=== PATIENT | female | born 1955 | race Caucasian/White ===

== ENCOUNTER → 2023-06-07 13:38 | Outpatient (CLI) | payer MEDICARE, SELFPAY ==
--- NOTE | 2023-06-07 | DI.MG.S_ITS ---
BILATERAL DIGITAL DIAGNOSTIC MAMMOGRAM 3D/2D SHORT-TERM FOLLOW-UP: 06/07/2023 CLINICAL: Short term follow up of the right breast, due for bilateral imaging. Comparison is made to exams dated: 02/18/2021 mammogram, 01/26/2021 mammogram, 01/03/2021 mammogram, and 02/18/2021 stereotactic biopsy - outside location. Both breasts are heterogeneously dense, which may obscure small masses (category c / 51-75% glandular tissue). There is a stable fine calcification in the right breast at 10 o'clock posterior depth. This correlates with the biopsy. There also is a stable fine calcification in the right breast at 12 o'clock posterior depth. This correlates with the biopsy. No other significant masses, calcifications, or other findings are seen in either breast. IMPRESSION: BENIGN There is no mammographic evidence of malignancy. Stable fine calcifications in the right breast breast. Prior benign biopsies. A 1 year screening mammogram is recommended. Exam findings were conveyed to the patient. Based on the Tyrer Cuzick model (a risk assessment model) the patient's lifetime risk is 8.7% and her 10 year risk is 4.6%. According to the ACR, ACS, and NCCN guidelines, an annual breast MRI exam along with mammogram is recommended if the patient's lifetime risk is 20% or greater. This exam was interpreted at Station ID: [id number]. NOTE: For mammograms, a report in lay terms will be sent to the patient. Approximately 15% of breast malignancies will not be visualized mammographically. In the management of a palpable breast mass, a negative mammogram must not discourage biopsy of a clinically suspicious lesion. Electronically Signed By: Junior Nixon M.D. [facility] [place]/:06/07/2023 14:21:40 copy to: KATIA MCCLURE letter sent: Normal Exam ACR BI-RADS Category 2: Benign Finding(s) 3342F
== END ==
PROVIDERS: PCP Internal Medicine; Referring Provider Internal Medicine; Visit Provider Internal Medicine
DX: R92.8 Other abnormal and inconclusive findings on diagnostic imaging of breast (principal); R92.1 Mammographic calcification found on diagnostic imaging of breast
CPT/HCPCS: 77066; G0279

== ENCOUNTER → 2023-07-07 09:52 | Outpatient (CLI) | payer MEDICARE, SELFPAY ==
--- NOTE | 2023-07-07 | DI.RAD.S_ITS ---
Bone Density Report Name: RANDY CHAHAL Age: 67 Sex: Female Ethnicity: White Date of : 1955 Indication: postmenopausal; screening for osteoporosis; Referring Provider: AV GARCIA Study: Bone densitometry was performed. Exam Date: July 07, 2023 Accession number: [id number] Bone Density: Region BMD T-score Z-score Classification AP Spine(L1-L4) 0.671 -3.4 -1.5 Osteoporosis Femoral Neck (Left) 0.524 -2.9 -1.3 Osteoporosis Total Hip (Left) 0.673 -2.2 -0.8 Osteopenia Femoral Neck (Right) 0.526 -2.9 -1.3 Osteoporosis Total Hip (Right) 0.673 -2.2 -0.8 Osteopenia Total Hip Mean 0.673 -2.2 -0.8 Osteopenia World Health Organization criteria for BMD impression classify patients as: Normal (T-score at or above -1.0), Osteopenia (T-score between -1.0 and -2.5), or Osteoporosis (T-score at or below -2.5). 10-year Fracture Risk: FRAX not reported because: Some T-score for Spine Total or Hip Total or Femoral Neck at or below -2.5 Treated for osteoporosis Impression: The patient has osteoporosis, based on the Total Spine T-score. Discussion: It is important to ask patients whether they are taking their medications and to encourage continued and appropriate compliance with their osteoporosis therapies to reduce fracture risk. It is also important to review their risk factors and encourage appropriate calcium and vitamin D intakes, exercise, fall prevention and other lifestyle measures. Follow-Up: Consider a repeat BMD and Vertebral Fracture Assessment (VFA) exam in 2 years or sooner if medically necessary, to reassess this patient's status. Reported by: DWIGHT ZIMMER M.D. on 07/07/2023 10:13:00 AM.
== END ==
PROVIDERS: PCP Internal Medicine; Referring Provider Nurse Practitioner Family; Visit Provider Nurse Practitioner Family
DX: M81.0 Age-related osteoporosis without current pathological fracture (principal); Z78.0 Asymptomatic menopausal state; Z13.820 Encounter for screening for osteoporosis; Z79.83 Long term (current) use of bisphosphonates
CPT/HCPCS: 77080

== ENCOUNTER → 2024-06-19 | Outpatient (CLI) | payer MEDICARE, SELFPAY ==
--- NOTE | 2024-06-19 15:54 | DI.MG.S_ITS ---
BILATERAL DIGITAL SCREENING MAMMOGRAM 3D/2D WITH CAD: 06/19/2024 CLINICAL: Routine screening. Comparison is made to exams dated: 06/07/2023 mammogram - [facility], 02/18/2021 mammogram, and 01/03/2021 mammogram - outside location. Both breasts are heterogeneously dense, which may obscure small masses (category c / 51-75% glandular tissue). Current study was also evaluated with a Computer Aided Detection (CAD) system. There are benign post operative findings and biopsy clip in the right breast. There also are benign post operative findings in the left breast. No significant masses, calcifications, or other findings are seen in either breast. There has been no significant interval change. IMPRESSION: BENIGN There is no mammographic evidence of malignancy. A 1 year screening mammogram is recommended. Based on the Tyrer Cuzick model (a risk assessment model) the patient's lifetime risk is 8.2% and her 10 year risk is 4.6%. According to the ACR, ACS, and NCCN guidelines, an annual breast MRI exam along with mammogram is recommended if the patient's lifetime risk is 20% or greater. This exam was interpreted at Station ID: [id number]. NOTE: For mammograms, a report in lay terms will be sent to the patient. Approximately 15% of breast malignancies will not be visualized mammographically. In the management of a palpable breast mass, a negative mammogram must not discourage biopsy of a clinically suspicious lesion. Electronically Signed By: Caridad Martinez M.D., Ph.D. anne/chito:06/20/2024 14:48:27 copy to: KATIA MCCLURE letter sent: Normal Exam ACR BI-RADS Category 2: Benign Finding(s) 3342F
== END ==
LOC: MAMMO 15:53
PROVIDERS: PCP Internal Medicine; Referring Provider Internal Medicine; Visit Provider Internal Medicine
DX: Z12.31 Encounter for screening mammogram for malignant neoplasm of breast (principal); R92.333 Mammographic heterogeneous density, bilateral breasts
CPT/HCPCS: 77063; 77067

== ENCOUNTER → 2024-09-10 09:19 | Outpatient (CLI) | payer MEDICARE, SELFPAY ==
[2024-09-10 10:28] LABS: Hematocrit 39.4 % (36-46); Hemoglobin 13.6 g/dL (12.0-16.0); Mean Corpuscular HGB Conc 34.4 % (30-36); Mean Corpuscular Hemoglobin 32.2 PG (26-34); Mean Corpuscular Volume 93.4 fL (80-100); Platelet Count 258 X10^3/uL (150-400); Red Blood Cell Count 4.22 X10^6/uL (4.0-5.2); Red Cell Distribution Width 13.3 % (11.6-14.8); White Blood Cell Count 4.7 X10^3/uL (4.5-11.0)
[2024-09-10 10:52] LABS: Alanine Aminotransferase 14 IU/L (<35); Albumin 4.3 g/dL (3.5-5.0); Albumin Globulin Ratio 1.7 (1.0-2.8); Alkaline Phosphatase 87 U/L (38-126); Aspartate Aminotransferase 24 IU/L (14-36); BUN Creatinine Ratio 13.7 (6-22); Bilirubin Total 0.8 mg/dL (0.2-1.3); Blood Urea Nitrogen 10 mg/dL (7-17); Calcium 9.1 mg/dL (8.4-10.2); Carbon Dioxide 26 mmol/L (22-32); Chloride 105 mmol/L (98-107); Cholesterol 209 mg/dL (140-199); Estimated Glomerular Filt Rate > 60 mL/min (>60); Globulin 2.5 g/dL (1.7-4.1); Glucose 91 mg/dL (80-110); HDL Cholesterol 82 mg/dL (40-60); HEMOLYSIS < 15 (0-50); LDL Cholesterol Calculated 113 mg/dL (<100); Potassium 4.1 mmol/L (3.4-5.1); Sodium 138 mmol/L (137-145); Total Protein 6.8 g/dL (6.3-8.2); Triglycerides 68 mg/dL (35-150)
[2024-09-10 11:07] LABS: Vitamin D 25 Hydroxy (D3) 82.9 ng/mL (30.0-100.0)
[2024-09-10 11:21] LABS: TSH w/ Reflex to FT4 0.47 uIU/mL (0.47-4.68)
== END ==
PROVIDERS: PCP Registered Nurse Diabetes Educator; Referring Provider Registered Nurse Diabetes Educator; Visit Provider Registered Nurse Diabetes Educator
DX: Z00.00 Encounter for general adult medical examination without abnormal findings (principal); E78.5 Hyperlipidemia, unspecified; Z12.11 Encounter for screening for malignant neoplasm of colon
CPT/HCPCS: 36415; 80053; 80061; 82306; 84443; 85027

== ENCOUNTER → 2024-10-13 10:50 | Outpatient (CLI) | payer MEDICARE, SELFPAY ==
[2024-10-14 08:07] LABS: Apolipoprotein B 79 mg/dL (<90)
[2024-10-15 15:12] LABS: Lipoprotein (a) 27.4 nmol/L (<75.0)
== END ==
PROVIDERS: PCP Registered Nurse Diabetes Educator; Referring Provider Registered Nurse Diabetes Educator; Visit Provider Registered Nurse Diabetes Educator
DX: E78.5 Hyperlipidemia, unspecified (principal)
CPT/HCPCS: 36415; 82172; 83695

== ENCOUNTER → 2024-10-25 13:11 | Outpatient (CLI) | payer MEDICARE, SELFPAY ==
--- NOTE | 2024-10-25 13:14 | DI.US.S_ITS ---
PROCEDURE: US ABD AORTA ANEURYSM SCREEN INDICATIONS: eval, R/O AAA TECHNIQUE: Real time scanning was performed of the aorta and iliac arteries, with image documentation. COMPARISON: None. FINDINGS: Aorta: Proximal aortic diameter measures 2.3 x 2.0 cm. Mid-aorta measures 1.9 cm. Distal aortic diameter is 1.5 cm. Iliac arteries: Right common iliac artery measures 0.9 cm. Left common iliac artery measures 0.8 cm. IMPRESSION: No infrarenal aortic aneurysm. Dictated by: Rajat Christianson M.D. on 10/25/2024 at 17:59 Approved by: Rajat Christianson M.D. on 10/25/2024 at 18:00
== END ==
PROVIDERS: PCP Registered Nurse Diabetes Educator; Referring Provider Registered Nurse Diabetes Educator; Visit Provider Registered Nurse Diabetes Educator
DX: R09.89 Other specified symptoms and signs involving the circulatory and respiratory systems; Z13.6 Encounter for screening for cardiovascular disorders
CPT/HCPCS: 76706

== ENCOUNTER 2025-03-09 03:48 | Emergency (ER) | payer MEDICARE, SELFPAY ==
[2025-03-09] VITALS (7 sets, daily range): BP systolic 107–132; BP diastolic 53–64; PULSE 60–82; RESP 16–18; TEMP 36.4; O2SAT 94–99; BMI 21.6
--- NOTE | 2025-03-09 05:02 | DI.CT.S_ITS ---
PROCEDURE: CT LUMBAR SPINE WO CON INDICATIONS: LBP, osteoporosis TECHNIQUE: Noncontrast 3 mm thick sections acquired from the T12 level to the sacrum. Sagittal and coronal reformats were constructed. For radiation dose reduction, the following was used: automated exposure control. COMPARISON: None. FINDINGS: Image quality: Excellent. Bones: There is normal bony alignment. No acute vertebral body compression fractures. At the superior endplate of T12, there is a remote appearing compression deformity, with an associated Schmorl's node, with 30% loss of height centrally No suspicious lytic or blastic bony lesions. No pars defects. Age-appropriate bony degenerative changes are seen. Soft tissues: No retroperitoneal masses or hematomas. Visualized aorta is normal in caliber. Atherosclerotic calcification is noted. There is dense calcification seen involving the cortex of the superior left kidney, as on series 3, image 5. IMPRESSION: No acute fracture is seen. Remote appearing fracture seen of the T12 level, with 30% loss of height centrally. Additional findings: Dense calcification of the left renal cortex. Note: No significant discrepancy from the preliminary report. Dictated by: Ben Rdz M.D. on 03/09/2025 at 9:04 Approved by: Ben Rdz M.D. on 03/09/2025 at 9:06
--- NOTE | 2025-03-09 05:03 | ED.BACK ---
HPI - Back Pain/Injury General Chief Complaint: Back Pain/Injury Stated Complaint: Severe back pain Time Seen by Provider: 03/09/25 04:20 Source: patient History of Present Illness HPI Narrative: 69-year-old female with history of osteoporosis, was swinging kettle gan weights yesterday, afterwards felt low back pain, worse with lateral movements and twisting like movements. No numbness or tingling to legs. No incontinence of urine or stool. No previous surgical interventions or injections to the back. No painful urination or frequency of urination. No anterior abdominal discomfort, nausea or vomiting, or diarrhea. Related Data Home Medications Medication Instructions Recorded Confirmed Saccharomyces boulardii 250 mg 250 mg PO BID 08/22/24 10/03/24 capsule (Daily Probiotic (S. boulardii)) Turmeric /curcumin PO 08/22/24 10/03/24 adrenal health PO 08/22/24 10/03/24 algaeCal PO 08/22/24 10/03/24 digestive enzymes 1 cap PO DAILY 08/22/24 10/03/24 omega 3-6-9 PO 08/22/24 10/03/24 vitamin D3 250 mcg (10,000 1 cap PO DAILY 08/22/24 10/03/24 unit)-vitamin K2 45 mcg capsule Allergies Allergy/AdvReac Type Severity Reaction Status Date / Time No Known Drug Allergies Allergy Unverified 10/03/24 14:31 Patient History Medical History Dyslipidemia History of abnormal cervical Pap smear History of HPV infection Osteoporosis of multiple sites without pathological fracture Social History Smoking Status: Never smoker Smoking Status: Never smoker Exam Narrative Exam Narrative: GENERAL: Well-developed patient, in mild distress. HEAD: Atraumatic. Normocephalic. EYES: Pupils equal round and reactive. Extraocular motions intact. No scleral icterus. No injection or drainage. ENT: Nose without bleeding, purulent drainage. Throat without erythema, tonsillar hypertrophy or exudate. Airway patent. NECK: Trachea midline. Non tender CARDIOVASCULAR: Regular rate and rhythm without murmurs, gallops, or rubs. RESPIRATORY: Clear to auscultation. Breath sounds equal bilaterally. No wheezes, rales, or rhonchi. GASTROINTESTINAL: Abdomen soft, non-tender, nondistended. EXTREMITIES: No edema or joint tenderness. BACK: Nontender without deformity or crepitance. No flank tenderness. NEURO: AOx3. Motor functions grossly nonfocal SKIN: No rash or erythema of visible areas Initial Vital Signs Initial Vital Signs: Vital Signs Pulse Rate 80 03/09/25 04:03 Pulse Oximetry 94 03/09/25 04:03 Course Orders Ordered: ED Orders 03/09/25 05:02 CT lumbar spine wo con Stat Discontinued Medications Tramadol HCl (Tramadol 50 Mg Prepack) 1 bottle MISC DIRECTED ONE Stop: 03/09/25 06:24 Last Admin: 03/09/25 06:29 Dose: 1 bottle Vital Signs Vital signs: Vital Signs - 8 hr 03/09/25 04:03 03/09/25 04:04 03/09/25 04:04 Temperature Pulse Rate 80 72 Respiratory Rate Blood Pressure 126/58 L Pulse Oximetry 94 99 Oxygen Delivery Method 03/09/25 04:10 03/09/25 04:30 03/09/25 05:00 Temperature 97.6 F Pulse Rate 69 Respiratory Rate 16 Blood Pressure 126/58 L 123/59 L 132/64 Pulse Oximetry 98 Oxygen Delivery Method Room Air 03/09/25 05:00 03/09/25 05:30 03/09/25 05:30 Temperature Pulse Rate 82 62 Respiratory Rate 18 18 Blood Pressure 114/56 L Pulse Oximetry 96 95 Oxygen Delivery Method 03/09/25 06:00 03/09/25 06:00 Temperature Pulse Rate 60 Respiratory Rate 18 Blood Pressure 107/53 L Pulse Oximetry 95 Oxygen Delivery Method MDM - Back Pain/Injury MDM Narrative Medical decision making narrative: 69-year-old female with history of osteoporosis was swinging weight is exercising, felt low back pain, no fall or injuries. No neurovascular compromise, no radiation to the legs. No incontinence. Afebrile, sirs screen negative. No known cancers or red flags, besides the osteoporosis history. Patient concerned about osteoporosis related fracture with exercise. Patient would like imaging. At this hour we can do CT scan abdomen and pelvis, CT lumbar spine. She would prefer more limited evaluation with CT lumbar spine, though she does not seem to have midline or paraspinal muscular discomfort, in could in theory have pain to the low back referred from some internal process. For now she would prefer to have CT lumbar spine imaging only. Declines pain medication when offered. CT and lumbar spine noncontrast scan ordered. CT lumbar spine noncontrast. Impressions: ?multilevel spondylotic changes of the lumbar spine without acute traumatic injury. ? See tele radiology report Patient declines muscle relaxant, seems to be willing to try [id number] motrin/tylenol if needed. Was amenable to home pack of tramadol to use if needed, dispensed. Discharged home with family. Follow up with PCP advised. Copy of report provided. Discharge Plan Departure Patient Disposition: Home Clinical Impression: Low back pain, DJD (degenerative joint disease), lumbar Activity Restrictions/Additional Instructions: Low back pain after kettle gan like activity,, history of osteoporosis. CT lumbar spine without obvious lytic lesions or cancer slight changes or obvious vertebral body fractures. There was some degenerative changes in the facets and short intervertebral disc spaces. This may predispose you for some discomfort with physical activity. There did not seem to be any actionable grossly abnormal findings to contact Neurosurgery at this hour for transfer. Follow up with your regular doctor advised for now. We discussed muscle relaxants, declined. We did give home pack of tramadol to use if needed. Recheck with your regular doctor next week. Return to this/nearest emergency department for any change worsening symptoms or any concerns prior. Prescriptions: No Action vitamin D3-vitamin K2 250 mcg (10,000 unit)-45 mcg capsule 1 cap PO DAILY omega 3-6-9 PO algaeCal PO adrenal health PO Saccharomyces boulardii [Daily Probiotic (S. boulardii)] 250 mg capsule 250 mg PO BID digestive enzymes Capsule 1 cap PO DAILY Rx Instructions: administer with food; swallow whole; do not crush/chew/dissolve/break/cut Turmeric /curcumin PO Referrals: Joselito Birmingham ARNP [Primary Care Provider] - Stand Alone Forms: Patient Portal/API/Survey
[2025-03-09] MEDS: TRAMADOL 50 MG PREPACK 1 BOTTLE MISC (06:29)
== END 2025-03-09 06:36 | disposition home or self-care (01) ==
PROVIDERS: Emergency Provider Emergency Medicine; PCP Registered Nurse Diabetes Educator
DX: M54.50 Low back pain, unspecified (principal); M47.816 Spondylosis without myelopathy or radiculopathy, lumbar region; X50.0XXA Overexertion from strenuous movement or load, initial encounter
CPT/HCPCS: 72131; 99281; 99284